=== PATIENT | male | born 1975 | race Caucasian/White ===

== ENCOUNTER → 2016-11-29 | Outpatient (CLI) | payer OTHER | LOC: RAD 14:03 | DX: M54.2 Cervicalgia (principal); M54.9 Dorsalgia, unspecified | CPT/HCPCS: 72050; 72072; 72110 ==

== ENCOUNTER 2020-08-24 12:39 | Emergency (ER) | payer OTHER ==
[~2020-08-24 12:39] MED LIST: AUGMENTIN 875-1 EACH PO; BUPRENORPHIN-N1 EACH SL; GABAPENTIN600 MG PO; LISINOPRIL10 MG PO; OMEPRAZOLE20 MG PO; PREDNISONE10 MG PO; PREDNISONE20 MG PO; ZOFRAN4 MG PO
[2020-08-24 14:26] LABS: HEMOGLOBIN 16.7 gm/dl (14.0-17.5); RED BLOOD COUNT 4.97 M/UL (4.20-5.50)
[2020-08-24 14:49] LABS: BUN/CREATININE RATIO 12 (0-10)
[2020-08-24] MEDS ORDERED: ZOFRAN ODT 4 MG4 MG SL (15:23)
[2020-08-24] MEDS ORDERED: MOTION RELIEF25 MG PO (15:23)
== END 2020-08-24 15:35 | disposition home or self-care (01) ==
LOC: ER1 12:39
PROVIDERS: Physician Assistant
DX: R42 Dizziness and giddiness (principal); I10 Essential (primary) hypertension; Z79.899 Other long term (current) drug therapy; Z20.822 Contact with and (suspected) exposure to COVID-19
CPT/HCPCS: 71045; 80053; 82550; 82553; 83874; 84484; 85025; 93005; 99284; U0003

== ENCOUNTER → 2021-02-23 | Outpatient (CLI) | payer OTHER ==
[~2021-02-23] MED LIST changes: +MOTION RELIEF25 MG PO; +ZOFRAN ODT 4 MG4 MG SL
== END ==
LOC: RAD 17:41
DX: R05 Cough (principal); R07.9 Chest pain, unspecified
CPT/HCPCS: 71046

== ENCOUNTER 2021-03-17 20:20 | Emergency (ER) | payer OTHER ==
[2021-03-17 20:44] LABS: HEMOGLOBIN 16.8 gm/dl (14.0-17.5); RED BLOOD COUNT 4.85 M/UL (4.20-5.50); WHITE BLOOD COUNT 8.9 K/UL (4.5-11.0)
[2021-03-17 21:11] LABS: BUN/CREATININE RATIO 15 (0-10)
== END 2021-03-17 23:18 | disposition home or self-care (01) ==
LOC: ER1 20:20
PROVIDERS: Physician Assistant
DX: I10 Essential (primary) hypertension (principal); E78.5 Hyperlipidemia, unspecified; F17.290 Nicotine dependence, other tobacco product, uncomplicated
CPT/HCPCS: 71045; 80053; 82550; 82553; 83735; 83874; 84439; 84443; 84484; 85025; 93005; 99284

== ENCOUNTER 2021-11-02 23:04 | Emergency (ER) | payer OTHER ==
[2021-11-03] MEDS ORDERED: AMOX TR-K CLV1 EAC4 PO (01:37)
[2021-11-03] MEDS ORDERED: PSEUDOEPHEDRINE60 MG PO (01:37)
[2021-11-03] MEDS ORDERED: NAPROXEN500 MG PO (01:37)
== END 2021-11-03 01:45 | disposition home or self-care (01) ==
LOC: ER1 23:04
DX: S02.32XA Fracture of orbital floor, left side, initial encounter for closed fracture (principal); Y04.2XXA Assault by strike against or bumped into by another person, initial encounter
CPT/HCPCS: 70486; 99283

== ENCOUNTER 2021-11-03 12:31 | Emergency (ER) | payer OTHER ==
[~2021-11-03 12:31] MED LIST changes: +AMOX TR-K CLV1 EAC4 PO; +NAPROXEN500 MG PO; +PSEUDOEPHEDRINE60 MG PO
[2021-11-03 13:29] LABS: HEMOGLOBIN 15.2 gm/dl (14.0-17.5); RED BLOOD COUNT 4.57 M/UL (4.20-5.50); WHITE BLOOD COUNT 5.8 K/UL (4.5-11.0)
[2021-11-03 14:34] LABS: BUN/CREATININE RATIO 14 (0-10)
== END 2021-11-03 17:00 | disposition home or self-care (01) ==
LOC: ER1 12:31
PROVIDERS: Nurse Practitioner
DX: I10 Essential (primary) hypertension (principal)
CPT/HCPCS: 71045; 80053; 82550; 82553; 84484; 85025; 99284

== ENCOUNTER 2021-11-16 12:22 | Inpatient (IN) | payer OTHER ==
[~2021-11-16] VITALS: Ht 172.7 cm; Wt 72.6 kg
[2021-11-16] MEDS ORDERED: PERCOCET 5/325 T1 EA PO (13:37)
[2021-11-16 15:12] LABS: HEMOGLOBIN 15.6 gm/dl (14.0-17.5); RED BLOOD COUNT 4.77 M/UL (4.20-5.50); WHITE BLOOD COUNT 7.8 K/UL (4.5-11.0)
[2021-11-16 15:35] LABS: BUN/CREATININE RATIO 18 (0-10)
[2021-11-16] MEDS ORDERED: ADULT LOW DOSE81 MG PO (17:08)
[2021-11-17 05:22] LABS: HEMOGLOBIN 14.1 gm/dl (14.0-17.5)
[2021-11-17 05:29] LABS: RED BLOOD COUNT 4.29 M/UL (4.20-5.50); WHITE BLOOD COUNT 5.8 K/UL (4.5-11.0)
[2021-11-17 05:37] LABS: BUN/CREATININE RATIO 20 (0-10)
[2021-11-18 05:52] LABS: HEMOGLOBIN 13.5 gm/dl (14.0-17.5); RED BLOOD COUNT 4.13 M/UL (4.20-5.50); WHITE BLOOD COUNT 4.4 K/UL (4.5-11.0)
[2021-11-18 06:20] LABS: BUN/CREATININE RATIO 17 (0-10)
--- NOTE | 2021-11-18 09:16 | NUR ---
EQUIPMENT STERILIZER AT BEDSIDE TO PERFORM BUBBLE STUDY.
[2021-11-19 06:31] LABS: HEMOGLOBIN 13.2 gm/dl (14.0-17.5); WHITE BLOOD COUNT 4.3 K/UL (4.5-11.0)
[2021-11-19 06:51] LABS: BUN/CREATININE RATIO 13 (0-10)
[2021-11-19] MEDS ORDERED: NEOSPORIN OINT15 GM TOP (08:34)
[2021-11-19] MEDS ORDERED: GABAPENTIN600 MG PO ×2 (08:34→17:05)
== END 2021-11-19 13:51 | disposition home or self-care (01) | DRG 558 ==
LOC: ER1 12:22 → CDU 16:20 → MED SURG 4 19:37
PROVIDERS: Family Medicine; Physician Assistant; ADMIT Internal Medicine
PROC: B24BZZZ Ultrasonography of Heart with Aorta (ICD-10-PCS; principal; 2021-11-17)
DX: M62.82 Rhabdomyolysis (principal); F11.20 Opioid dependence, uncomplicated; Z20.822 Contact with and (suspected) exposure to COVID-19; R07.89 Other chest pain; I10 Essential (primary) hypertension; I95.9 Hypotension, unspecified; F19.10 Other psychoactive substance abuse, uncomplicated; I44.0 Atrioventricular block, first degree; Z96.698 Presence of other orthopedic joint implants; M54.9 Dorsalgia, unspecified; B19.20 Unspecified viral hepatitis C without hepatic coma; I07.1 Rheumatic tricuspid insufficiency; E86.1 Hypovolemia; E87.6 Hypokalemia; K59.00 Constipation, unspecified; E88.89 Other specified metabolic disorders; G89.29 Other chronic pain; R74.01 Elevation of levels of liver transaminase levels; R23.8 Other skin changes; Z79.01 Long term (current) use of anticoagulants; Z79.82 Long term (current) use of aspirin; I25.2 Old myocardial infarction; Z85.841 Personal history of malignant neoplasm of brain; Z59.00 Homelessness unspecified
CPT/HCPCS: ECHO; 36415; 71046; 73562; 78452; 80048; 80053; 80061; 80307; 81001; 82550; 82553; 83036; 83735; 84132; 84484; 85025; 85027; 87040; 93005; 93017; 93306; 93308; 94760; 96372; 99285; A9502; G0378; J1650; J2785; U0002

== ENCOUNTER 2022-02-25 17:52 | Emergency (ER) | payer OTHER ==
[~2022-02-25 17:52] MED LIST changes: +ADULT LOW DOSE81 MG PO; +NEOSPORIN OINT15 GM TOP; +PERCOCET 5/325 T1 EA PO
[2022-02-25] MEDS ORDERED: IBU600 MG PO (21:13)
[2022-02-25] MEDS ORDERED: ROBAXIN 750 MG750 MG PO (21:13)
== END 2022-02-25 22:00 | disposition home or self-care (01) ==
LOC: ER1 17:52
DX: S13.4XXA Sprain of ligaments of cervical spine, initial encounter (principal); S33.5XXA Sprain of ligaments of lumbar spine, initial encounter; I10 Essential (primary) hypertension; V49.50XA Passenger injured in collision with unspecified motor vehicles in traffic accident, initial encounter; Y92.410 Unspecified street and highway as the place of occurrence of the external cause
CPT/HCPCS: 72040; 72100; 99283

== ENCOUNTER 2022-04-01 20:12 | Emergency (ER) | payer OTHER ==
[~2022-04-01 20:12] MED LIST changes: +IBU600 MG PO; +ROBAXIN 750 MG750 MG PO
[2022-04-01 21:30] LABS: HEMOGLOBIN 14.1 gm/dl (14.0-17.5); RED BLOOD COUNT 4.45 M/UL (4.20-5.50); WHITE BLOOD COUNT 4.9 K/UL (4.5-11.0)
[2022-04-01 22:02] LABS: BUN/CREATININE RATIO 13 (0-10)
[2022-04-01] MEDS ORDERED: IBUPROFEN600 MG PO (22:49)
[2022-04-01] MEDS ORDERED: PROVENTIL HFA6.7 GM INH (22:49)
== END 2022-04-01 22:57 | disposition home or self-care (01) ==
LOC: ER1 20:12
PROVIDERS: Physician Assistant
DX: U07.1 COVID-19 (principal)
CPT/HCPCS: 0240U; 71045; 80053; 85025; 87081; 87880; 99284